=== PATIENT | male | born 1970 | race Caucasian/White ===

== ENCOUNTER 2019-05-07 21:34 | Emergency (ER) | payer BC, OTHER ==
[2019-05-07 21:48] VITALS: BP 136/90; PULSE 87; TEMP 98.6; BMI 41.0
[2019-05-07] MEDS ORDERED: ALBUTEROL SO4 2.5/IPRATROPIUM 0.5 INH SOL 3 ML VIAL.NEB. NEB ONE ×2 (21:51→22:03)
[2019-05-07] MEDS ORDERED: methylPREDNISolone NA SUCC 125 MG/2 ML VIAL IVPUSH ONE (22:31)
[2019-05-07] MEDS ORDERED: methylPREDNISolone NA SUCC 125 MG/2 ML VIAL ONE (22:35)
[2019-05-07 22:40] LABS: ALBUMIN 4.2 g/dl (3.4-5.0); BILIRUBIN,TOTAL 0.7 mg/dl (0.2-1); CALCIUM 9.1 mg/dl (8.5-10); CREATININE 1.1 mg/dl (0.55-1.3); POTASSIUM 3.7 mmol/L (3.5-5.1); TOT PROT 7.2 g/dl (6.4-8.2)
[2019-05-07] MEDS ORDERED: CODEINE SO4 30 MG TABLET PO ONE (22:45)
--- NOTE | 2019-05-07 22:45 | PDOC ---
Documentation entered by Lauren Weaver SCRIBE, acting as scribe for Jaimee Mccoy MD. Jiamee Mccoy MD: This documentation has been prepared by the capoibeOwen Lincy, SCRIBE, under my direction and personally reviewed by me in its entirety. I confirm that the documentation accurately reflects all work , treatment, procedures, and medical decision making performed by me. History of Present Illness - General Chief Complaint: Respiratory Stated Complaint: COUGH History Source: Patient Exam Limitations: No Limitations - History of Present Illness Initial Comments: 05/07/19 22:26 The patient is a 49-year-old male who presents to the emergency department with a cough. The patient reports hes been having 3 weeks of cough that worsened today. The patient reports he would feel a postnasal drip, following he would have episodes of cough with clear phlegm production. The patient reports the cough has worsened to the point where he would feel like he cant catch a breath and starts to feel lightheaded. The patient says he is unable to lie down , secondary to feeling like hes choking on his spit. Denies chest pain. The patient reports following up at Urgent Care on Saturday (05/03), where his physical exam was significant for wheezing and was given 3 doses of nebulizer treatment. The patient reports he was also given Prednisone, Cefdinir, proair, and albuterol sulfate. The patient reports he's been taking the nebulizer treatment every 4 hours, however missed this morning's dose and took it around 12:30 pm. The last dose was about an hour [employer]. The patient reports he finished the prednisone treatment today. 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 PAST MEDICAL HISTORY: No significant past medical history PAST SURGICAL HISTORY: no significant history FAMILY HISTORY: no pertinent history SOCIAL HISTORY: Pt lives with family. MEDICATIONS: reviewed ALLERGIES: As per nursing notes Review of system: General: No fevers or chills, no weakness, no weight loss HEENT: No change in vision. No sore throat,. No ear pain CardioVascular: No chest pain or shortness of breath Respiratory: +cough and wheezing. Gastrointestinal: no nausea, vomiting, diarrhea or constipation, No rectal bleeding Genitourinary: No dysuria, hematuria, or frequency Musculoskeletal: No joint or muscle pain or swelling Neurologic: No headache, vertigo, dizziness or loss of consciousness Psychiatric: nor depression Skin: No rashes or easy bruising Endocrine: no increased thirst or abnormal weight change Allergic: no skin or latex allergy All other systems reviewed and normal Physical exam: General: Well-nourished well-developed individual, no acute distress HEENT: Throat: Normal, tonsils normal, no erythema or exudate Neck: Supple, no meningeal signs, no lymphadenopathy Eyes :Pupils equal reactive and round, extraocular motion intact Chest: Nontender to palpation Cardiac: S1-S2 normal, regular rate and rhythm, no murmurs rubs or gallops Respiratory: +decreased breath sounds, with diffuse mild expiratory wheezing in all conte. +tachypnic, Unable to speak in full sentences. Abdomen: Soft, nondistended, normal bowel sounds, nontender to palpation diffusely Extremities: Warm, dry, no cyanosis, clubbing, or edema Skin: No rashes Neuro: Alert and oriented x3, nonfocal exam, grossly intact, normal gait Psych: Normal mood and affect 05/07/19 22:34 Assessment and plan: This is a 49-year-old male who comes in complaining of persistent cough times almost 2 weeks. Patient has been to urgent care centers x2 is on antibiotics, inhalers, steroids and still complains of persistent cough. Work-up initiated including CBC, comp, BMP, d-dimer, chest x-ray. Patient given DuoNeb and codeine cough syrup. 05/08/19 00:26 Patient is much improved post cough syrup and DuoNeb as well as a steroid. Patient was positive for influenza A so was started on Tamiflu. Prescriptions were sent to patient's pharmacy for Tamiflu and one guaniffesen with codeine cough syrup Patient discharged home will follow-up with his primary care doctor Past History - Past Medical History Allergies/Adverse Reactions: Allergies Allergy/AdvReac Type Severity Reaction Status Date / Time No Known Allergies Allergy Verified 02/04/12 06:36 Home Medications: Ambulatory Orders Albuterol 0.083% Nebulizer Smiley [Ventolin 0.083%] 1 neb NEB Q4H PRN 05/07/19 Albuterol Sulfate [Proair Respiclick] 90 mcg IH ASDIR 05/07/19 Cefdinir 300 mg PO DAILY 05/07/19 Omeprazole 40 mg PO DAILY 05/07/19 predniSONE [Deltasone -] 5 mg PO ASDIR 05/07/19 Codeine Phosphate/Guaifenesin [Guaifenesin AC Cough Syrup] 10 ml PO Q4H PRN # 500 ml MDD 6 05/08/19 Oseltamivir Phosphate [Tamiflu] 75 mg PO BID #10 capsule 05/08/19 CVA: No DVT: No HTN: No - Psycho Social/Smoking Cessation Hx Smoking Status: No Smoking History: Former smoker Number of Cigarettes Smoked Daily: 0 Cigars Per Day: 0 *Physical Exam - Vital Signs Last Vital Signs Temp Pulse Resp BP Pulse Ox 98.6 F 87 18 136/90 99 05/07/19 21:39 05/07/19 21:39 05/07/19 21:39 05/07/19 21:39 05/07/19 21:39 ED Treatment Course - LABORATORY CBC & Chemistry Diagram: 05/07/19 22:00 05/07/19 22:00 Discharge - Discharge Information Problems reviewed: Yes Clinical Impression/Diagnosis: Influenza A, Cough, persistent Condition: Improved Disposition: HOME - Admission No - Additional Discharge Information Prescriptions: Codeine Phosphate/Guaifenesin [Guaifenesin AC Cough Syrup] 10 ml PO Q4H PRN # 500 ml MDD 6 PRN Reason: Cough Oseltamivir Phosphate [Tamiflu] 75 mg PO BID #10 capsule - Follow up/Referral - Patient Discharge Instructions Additional Instructions: Take the Tamiflu twice a day for the next 5 days. Get the prescription filled for the cough medicine with codeine and take 2 teaspoons as often as every 4-6 hours as needed. The medication may make you drowsy so be aware if you are driving a vehicle. Return to the emergency department immediately with ANY new, persistent or worsening symptoms. Continue any medications as previously prescribed by your physician. You should follow up with your primary doctor as soon as possible regarding today's emergency department visit. . Please make sure your doctor reviews the results of your emergency evaluation. Thank you for coming to the Emergency Department today for your care. It was a pleasure to see you today. Please note that your evaluation is INCOMPLETE until you follow-up with your doctor. - Post Discharge Activity
[2019-05-07 22:46] LABS: BASO % 0.4 % (0-2.0); EOS % 1.3 % (0-4.5); HEMATOCRIT 46.4 % (35.4-49); HEMOGLOBIN 15.5 GM/dl (11.7-16.9); LYMPH % 18.9 % (8-40); MCHC 33.3 g/dl (32.0-35.9); MEAN PLT VOLUME 10.1 fl (7.5-11.1); NEUT % 74.4 % (42.8-82.8); PLATELET COUNT 246 K/MM3 (134-434); RBC 5.33 M/mm3 (4.00-5.60); RDW 12.8 % (11.9-15.9); WHITE BLOOD COUNT 10.6 K/mm3 (4.0-10.8)
[2019-05-07] MEDS ORDERED: guaiFENesin/CODEINE 10 ML UNIT-DOSE CUPS ONE (22:52)
[2019-05-07] MEDS ORDERED: guaiFENesin/CODEINE 5 ML UNIT-DOSE CUPS PO STA (22:52)
[2019-05-08] MEDS ORDERED: OSELTAMIVIR PHOSPHATE 75 MG CAPSULE PO ONE (00:24)
[2019-05-08] MEDS ORDERED: OSELTAMIVIR PHOSPHATE 75 MG CAPSULE ONE (00:28)
--- NOTE | 2019-05-08 11:30 | EKG ---
Test Reason : Blood Pressure : / mmHG Vent. Rate : 089 BPM Atrial Rate : 089 BPM P-R Int : 156 ms QRS Dur : 080 ms QT Int : 340 ms P-R-T Axes : 043 -17 018 degrees QTc Int : 413 ms NORMAL SINUS RHYTHM MINIMAL VOLTAGE CRITERIA FOR LVH, MAY BE NORMAL VARIANT NONSPECIFIC ST AND T WAVE ABNORMALITY NO PREVIOUS ECGS AVAILABLE Confirmed by BRIT BLACKWOOD MD ([id number]) on 05/08/2019 11:29:59 AM Referred By: DR CHILDERS Confirmed By:BRIT BLACKWOOD MD
== END 2019-05-08 00:33 | disposition home or self-care (01) ==
LOC: FER 21:34
PROC: 3E0F7GC Introduction of Other Therapeutic Substance into Respiratory Tract, Via Natural or Artificial Opening (ICD-10-PCS; principal; 2019-05-07)
PROC: 3E033GC Introduction of Other Therapeutic Substance into Peripheral Vein, Percutaneous Approach (ICD-10-PCS; 2019-05-07)
DX: J09.X2 Influenza due to identified novel influenza A virus with other respiratory manifestations (principal); R05 Cough; Z87.891 Personal history of nicotine dependence
CPT/HCPCS: 36415; 71046-TC-FY; 80053; 82550; 82553; 83880; 84484; 85025; 85379; 87804; 93005; 99283-25

== ENCOUNTER 2022-06-10 19:45 | Emergency (ER) | payer BC, OTHER ==
[2022-06-10 20:13] VITALS: BP 150/98; PULSE 88; RESP 20; TEMP 98.5; BMI 38.7
[2022-06-10] MEDS ORDERED: ACETAMINOPHEN WITH CODEINE 300MG/30MG TABLET PO ONE (20:25)
[2022-06-10] MEDS ORDERED: ALBUTEROL SO4 2.5/IPRATROPIUM 0.5 INH SOL 3 ML VIAL.NEB. NEB ONE ×2 (20:26→20:30)
[2022-06-10] MEDS ORDERED: ACETAMINOPHEN WITH CODEINE 300MG/30MG TABLET ONE (20:29)
== END 2022-06-10 22:17 | disposition home or self-care (01) ==
LOC: FER 19:45
PROC: 3E0F7GC Introduction of Other Therapeutic Substance into Respiratory Tract, Via Natural or Artificial Opening (ICD-10-PCS; principal; 2022-06-10)
DX: R05.1 Acute cough (principal)
CPT/HCPCS: 0241U-QW; 71250-TC; 99284-25